=== PATIENT | female | born 1935 | race Caucasian/White ===

== ENCOUNTER 2021-04-29 07:12 | Inpatient (IN) | payer OTHER ==
[2021-04-29] MEDS ORDERED: SODIUM CHLORIDE 500 ML IV STA (08:23)
[2021-04-29 10:59] LABS: BASO % 0.2 % (0-2.0); HEMATOCRIT 39.1 % (32.4-45.2); HEMOGLOBIN 12.8 GM/dL (10.7-15.3); LYMPH % 18.4 % (8-40); MCH 28.7 pg (25.7-33.7); MCHC 32.8 g/dl (32.0-36.0); MEAN CELL VOLUME 87.5 fl (80-96); MEAN PLT VOLUME 9.8 fl (7.5-11.1); MONO % 10.9 % (3.8-10.2); NEUT % 70.5 % (42.8-82.8); PLATELET COUNT 170 10^3/uL (134-434); RBC 4.47 M/mm3 (3.60-5.2); RDW 13.4 % (11.6-15.6); WHITE BLOOD COUNT 3.8 K/mm3 (4.0-10.0)
[2021-04-29 11:09] LABS: CHLORIDE 107 mmol/L (98-107); SODIUM 140 mmol/L (136-145)
[2021-04-29 11:13] LABS: ALBUMIN 3.2 g/dl (3.4-5.0); ANION GAP 6 MMOL/L (8-16); BLOOD UREA NITROGEN 12.6 mg/dL (7-18); CALCIUM 8.5 mg/dL (8.5-10.1); CO2 27 mmol/L (21-32); GLUCOSE,RANDOM 107 mg/dL (74-106); MAGNESIUM 1.9 mg/dL (1.8-2.4)
[2021-04-29 11:16] LABS: CREATININE 0.8 mg/dL (0.55-1.3); PHOSPHOROUS 3.6 mg/dL (2.5-4.9); SGOT/AST 19 U/L (15-37); SGPT/ALT 17 U/L (13-61)
[2021-04-29 11:17] LABS: TOT PROT 6.9 g/dl (6.4-8.2)
[2021-04-29 11:18] LABS: ALK PHOS 77 U/L (45-117); BILIRUBIN,TOTAL 0.2 mg/dL (0.2-1)
[2021-04-29] MEDS ORDERED: ALBUTEROL SO4 HFA INHALER IH PRN (12:23)
[2021-04-29] MEDS ORDERED: PT OWN MED DRAWER 7, Y5N ONE (22:30)
[2021-04-29] MEDS ORDERED: METOPROLOL TARTRATE 25 MG TABLET (FP) ONE (22:49)
[2021-04-29] MEDS: ROSUVASTATIN CA 20 MG TABLET PO SCH (23:02)
[2021-04-29] MEDS: METOPROLOL TARTRATE 25 MG TABLET (FP) PO SCH (23:02)
[2021-04-29] MEDS: BUDESONIDE/FORMETEROL FUMARATE 160/4.5 mcg INHALER IH SCH (23:02)
[2021-04-30 01:46] VITALS: BMI 26.2
[2021-04-30] MEDS ORDERED: LEVOTHYROXINE NA 75 MCG TABLET (FP) PO ONE (07:45)
[2021-04-30] MEDS: DEXAMETHASONE SOD PHOSPHATE 4 MG/1 ML VIAL IVPUSH SCH (09:33)
[2021-04-30] MEDS: METOPROLOL TARTRATE 25 MG TABLET (FP) PO SCH ×2 (09:33→21:40)
[2021-04-30] MEDS: ASPIRIN 81 MG CHEWABLE TABLETS PO SCH (09:33)
[2021-04-30] MEDS: BUDESONIDE/FORMETEROL FUMARATE 160/4.5 mcg INHALER IH SCH ×2 (09:34→23:21)
[2021-04-30] MEDS: ENOXAPARIN NA (PORCINE) 40 MG/0.4 ML DISP.SYRIN SQ SCH (09:34)
[2021-04-30] MEDS ORDERED: REMDESIVIR 200 MG in SODIUM CHLORIDE 250 ML IVPB ONE (12:00)
[2021-04-30 17:39] LABS: BASO % 0.2 % (0-2.0); HEMATOCRIT 39.9 % (32.4-45.2); HEMOGLOBIN 13.1 GM/dL (10.7-15.3); LYMPH % 30.7 % (8-40); MCH 28.6 pg (25.7-33.7); MCHC 32.9 g/dl (32.0-36.0); MEAN CELL VOLUME 86.9 fl (80-96); MEAN PLT VOLUME 9.8 fl (7.5-11.1); MONO % 6.9 % (3.8-10.2); NEUT % 62.2 % (42.8-82.8); PLATELET COUNT 187 10^3/uL (134-434); RBC 4.59 M/mm3 (3.60-5.2); RDW 13.1 % (11.6-15.6); WHITE BLOOD COUNT 2.6 K/mm3 (4.0-10.0)
[2021-04-30 18:33] LABS: CALCIUM 8.3 mg/dL (8.5-10.1)
[2021-04-30 18:34] LABS: ALBUMIN 2.8 g/dl (3.4-5.0); BLOOD UREA NITROGEN 12.9 mg/dL (7-18); MAGNESIUM 1.6 mg/dL (1.8-2.4)
[2021-04-30 18:38] LABS: BILIRUBIN,TOTAL 0.3 mg/dL (0.2-1)
[2021-04-30 18:39] LABS: TOT PROT 7.1 g/dl (6.4-8.2)
[2021-04-30] MEDS: ROSUVASTATIN CA 20 MG TABLET PO SCH (21:40)
[2021-05-01] MEDS: MELATONIN 5 MG TABLETS PO PRN ×2 (02:21→21:30)
[2021-05-01] MEDS: LEVOTHYROXINE NA 75 MCG TABLET (FP) PO SCH (06:05)
[2021-05-01 10:04] LABS: BASO % 0.2 % (0-2.0); HEMATOCRIT 38.5 % (32.4-45.2); HEMOGLOBIN 13.1 GM/dL (10.7-15.3); LYMPH % 30.3 % (8-40); MCH 29.3 pg (25.7-33.7); MCHC 34.2 g/dl (32.0-36.0); MEAN CELL VOLUME 85.9 fl (80-96); MEAN PLT VOLUME 9.2 fl (7.5-11.1); MONO % 11.1 % (3.8-10.2); NEUT % 58.4 % (42.8-82.8); PLATELET COUNT 193 10^3/uL (134-434); RBC 4.48 M/mm3 (3.60-5.2); RDW 13.2 % (11.6-15.6); WHITE BLOOD COUNT 5.1 K/mm3 (4.0-10.0)
[2021-05-01 10:35] LABS: CALCIUM 9.2 mg/dL (8.5-10.1)
[2021-05-01 10:36] LABS: ALBUMIN 2.9 g/dl (3.4-5.0); BLOOD UREA NITROGEN 21.9 mg/dL (7-18); MAGNESIUM 1.9 mg/dL (1.8-2.4)
[2021-05-01 10:38] LABS: CREATININE 0.9 mg/dL (0.55-1.3)
[2021-05-01] MEDS: ASPIRIN 81 MG CHEWABLE TABLETS PO SCH (10:39)
[2021-05-01] MEDS: ENOXAPARIN NA (PORCINE) 40 MG/0.4 ML DISP.SYRIN SQ SCH (10:39)
[2021-05-01] MEDS: METOPROLOL TARTRATE 25 MG TABLET (FP) PO SCH ×2 (10:39→21:30)
[2021-05-01 10:40] LABS: BILIRUBIN,TOTAL 0.2 mg/dL (0.2-1)
[2021-05-01] MEDS: DEXAMETHASONE SOD PHOSPHATE 4 MG/1 ML VIAL IVPUSH SCH (10:40)
[2021-05-01] MEDS: BUDESONIDE/FORMETEROL FUMARATE 160/4.5 mcg INHALER IH SCH ×2 (10:40→22:46)
[2021-05-01] MEDS: REMDESIVIR 100 MG in SODIUM CHLORIDE 250 ML IVPB SCH (13:07)
[2021-05-01] MEDS: ROSUVASTATIN CA 20 MG TABLET PO SCH (21:30)
[2021-05-02] MEDS: LEVOTHYROXINE NA 75 MCG TABLET (FP) PO SCH (06:33)
[2021-05-02] MEDS: ASPIRIN 81 MG CHEWABLE TABLETS PO SCH (09:42)
[2021-05-02] MEDS: BUDESONIDE/FORMETEROL FUMARATE 160/4.5 mcg INHALER IH SCH ×2 (09:42→21:14)
[2021-05-02] MEDS: DEXAMETHASONE SOD PHOSPHATE 4 MG/1 ML VIAL IVPUSH SCH (09:42)
[2021-05-02] MEDS: METOPROLOL TARTRATE 25 MG TABLET (FP) PO SCH ×2 (09:42→21:13)
[2021-05-02] MEDS: ENOXAPARIN NA (PORCINE) 40 MG/0.4 ML DISP.SYRIN SQ SCH (09:43)
[2021-05-02 10:06] LABS: BASO % 0.1 % (0-2.0); HEMATOCRIT 38.4 % (32.4-45.2); HEMOGLOBIN 12.6 GM/dL (10.7-15.3); LYMPH % 27.9 % (8-40); MCH 28.3 pg (25.7-33.7); MCHC 32.8 g/dl (32.0-36.0); MEAN CELL VOLUME 86.3 fl (80-96); MEAN PLT VOLUME 9.5 fl (7.5-11.1); PLATELET COUNT 224 10^3/uL (134-434); RBC 4.45 M/mm3 (3.60-5.2); RDW 13.1 % (11.6-15.6); WHITE BLOOD COUNT 3.9 K/mm3 (4.0-10.0)
[2021-05-02 10:28] LABS: CALCIUM 8.6 mg/dL (8.5-10.1)
[2021-05-02 10:29] LABS: ALBUMIN 2.9 g/dl (3.4-5.0); BLOOD UREA NITROGEN 28.7 mg/dL (7-18); MAGNESIUM 1.9 mg/dL (1.8-2.4)
[2021-05-02 10:32] LABS: CREATININE 0.8 mg/dL (0.55-1.3)
[2021-05-02 10:33] LABS: BILIRUBIN,TOTAL 0.2 mg/dL (0.2-1); TOT PROT 6.7 g/dl (6.4-8.2)
[2021-05-02] MEDS: REMDESIVIR 100 MG in SODIUM CHLORIDE 250 ML IVPB SCH (11:59)
[2021-05-02 12:20] LABS: ANISOCYTOSIS 2+; MACROCYTOSIS 0; OVALOCYTE 2+; PLATELET ESTIMATE NORMAL
[2021-05-02] MEDS: MELATONIN 5 MG TABLETS PO PRN (21:13)
[2021-05-02] MEDS: ACETAMINOPHEN 325 MG TABLET (FP) PO PRN (21:13)
[2021-05-02] MEDS: ROSUVASTATIN CA 20 MG TABLET PO SCH (21:14)
[2021-05-03] MEDS: LEVOTHYROXINE NA 75 MCG TABLET (FP) PO SCH (06:22)
[2021-05-03 09:39] LABS: HEMATOCRIT 36.9 % (32.4-45.2); HEMOGLOBIN 12.2 GM/dL (10.7-15.3); MCH 28.6 pg (25.7-33.7); MCHC 33.2 g/dl (32.0-36.0); MEAN CELL VOLUME 86.2 fl (80-96); MEAN PLT VOLUME 9.7 fl (7.5-11.1); PLATELET COUNT 246 10^3/uL (134-434); RBC 4.28 M/mm3 (3.60-5.2); RDW 13.3 % (11.6-15.6); WHITE BLOOD COUNT 4.2 K/mm3 (4.0-10.0)
[2021-05-03 09:59] LABS: ALBUMIN 2.8 g/dl (3.4-5.0); CALCIUM 8.4 mg/dL (8.5-10.1)
[2021-05-03 10:00] LABS: MAGNESIUM 1.9 mg/dL (1.8-2.4)
[2021-05-03 10:01] LABS: CREATININE 0.7 mg/dL (0.55-1.3)
[2021-05-03 10:02] LABS: BILIRUBIN,TOTAL 0.4 mg/dL (0.2-1); TOT PROT 6.4 g/dl (6.4-8.2)
[2021-05-03] MEDS ORDERED: PT OWN MED DRAWER 7, Y5N ONE (10:13)
[2021-05-03 10:25] LABS: ANISOCYTOSIS 1+; MACROCYTOSIS 0; PLATELET ESTIMATE NORMAL
[2021-05-03] MEDS: ASPIRIN 81 MG CHEWABLE TABLETS PO SCH (10:43)
[2021-05-03] MEDS: BUDESONIDE/FORMETEROL FUMARATE 160/4.5 mcg INHALER IH SCH ×2 (10:43→21:36)
[2021-05-03] MEDS: METOPROLOL TARTRATE 25 MG TABLET (FP) PO SCH ×2 (10:43→21:35)
[2021-05-03] MEDS: DEXAMETHASONE SOD PHOSPHATE 4 MG/1 ML VIAL IVPUSH SCH (10:44)
[2021-05-03] MEDS: ENOXAPARIN NA (PORCINE) 40 MG/0.4 ML DISP.SYRIN SQ SCH (10:46)
[2021-05-03] MEDS: REMDESIVIR 100 MG in SODIUM CHLORIDE 250 ML IVPB SCH (12:21)
[2021-05-03] MEDS: MELATONIN 5 MG TABLETS PO PRN (21:35)
[2021-05-03] MEDS: ROSUVASTATIN CA 20 MG TABLET PO SCH (21:35)
[2021-05-03] MEDS: ACETAMINOPHEN 325 MG TABLET (FP) PO PRN (21:35)
[2021-05-03] MEDS: guaiFENesin 200 MG/10 ML 10 ML UNIT-DOSE CUPS PO PRN (21:36)
[2021-05-04] MEDS: LEVOTHYROXINE NA 75 MCG TABLET (FP) PO SCH (06:04)
[2021-05-04] MEDS ORDERED: PT OWN MED DRAWER 7, Y5N ONE (09:22)
[2021-05-04] MEDS: DEXAMETHASONE SOD PHOSPHATE 4 MG/1 ML VIAL IVPUSH SCH (09:26)
[2021-05-04] MEDS: ENOXAPARIN NA (PORCINE) 40 MG/0.4 ML DISP.SYRIN SQ SCH (09:27)
[2021-05-04] MEDS: ASPIRIN 81 MG CHEWABLE TABLETS PO SCH (09:27)
[2021-05-04] MEDS: METOPROLOL TARTRATE 25 MG TABLET (FP) PO SCH (09:27)
[2021-05-04] MEDS: guaiFENesin 200 MG/10 ML 10 ML UNIT-DOSE CUPS PO PRN (09:28)
[2021-05-04] MEDS: BUDESONIDE/FORMETEROL FUMARATE 160/4.5 mcg INHALER IH SCH (09:28)
[2021-05-04] MEDS: REMDESIVIR 100 MG in SODIUM CHLORIDE 250 ML IVPB SCH (12:39)
[2021-05-04] MEDS ORDERED: METOPROLOL TARTRATE 25 MG TABLET (FP) PO SCH (14:32)
[2021-05-04 15:28] VITALS: BP 135/68; PULSE 61; TEMP 98.8
== END 2021-05-04 17:00 | disposition home or self-care (01) | DRG 179 ==
LOC: JER 07:12 → JERBED 11:57 → J8W 23:42
PROVIDERS: ADMIT Internal Medicine; ATTEND Nurse Practitioner Family
PROC: XW033E5 Introduction of Remdesivir Anti-infective into Peripheral Vein, Percutaneous Approach, New Technology Group 5 (ICD-10-PCS; principal; 2021-04-30)
DX: U07.1 COVID-19 (principal); I10 Essential (primary) hypertension; E78.5 Hyperlipidemia, unspecified; E03.9 Hypothyroidism, unspecified; R09.02 Hypoxemia; J06.9 Acute upper respiratory infection, unspecified; E66.9 Obesity, unspecified; Z68.26 Body mass index [BMI] 26.0-26.9, adult
CPT/HCPCS: 36415; 71045-TC-FY; 80053; 81003; 82550; 82728; 83615; 83690; 83735; 84100; 84484; 85025; 85379; 86140; 87086; 87804; 93005; 93010; 94010; 94761; 97116-GP; 97161-GP; 99285-25; C9399; C9803-CS; U0003; U0005

== ENCOUNTER 2021-05-04 20:01 | Observation (INO) | payer OTHER ==
[2021-05-04 22:51] LABS: BASO % 1.8 % (0-2.0); EOS % 0.2 % (0-4.5); HEMATOCRIT 41.2 % (32.4-45.2); HEMOGLOBIN 13.8 GM/dL (10.7-15.3); LYMPH % 17.1 % (8-40); MCHC 33.6 g/dl (32.0-36.0); MEAN CELL VOLUME 86.4 fl (80-96); MEAN PLT VOLUME 9.1 fl (7.5-11.1); MONO % 11.3 % (3.8-10.2); NEUT % 69.6 % (42.8-82.8); PLATELET COUNT 260 10^3/uL (134-434); RBC 4.76 M/mm3 (3.60-5.2); RDW 13.5 % (11.6-15.6); WHITE BLOOD COUNT 4.3 K/mm3 (4.0-10.0)
[2021-05-04 23:10] LABS: CHLORIDE 106 mmol/L (98-107); SODIUM 138 mmol/L (136-145)
[2021-05-04 23:12] LABS: ALBUMIN 3.2 g/dl (3.4-5.0); ANION GAP 10 MMOL/L (8-16); BLOOD UREA NITROGEN 27.8 mg/dL (7-18); CALCIUM 8.7 mg/dL (8.5-10.1); CO2 23 mmol/L (21-32); GLUCOSE,RANDOM 137 mg/dL (74-106)
[2021-05-04 23:15] LABS: CREATININE 0.8 mg/dL (0.55-1.3); SGPT/ALT 25 U/L (13-61)
[2021-05-04 23:16] LABS: SGOT/AST 28 U/L (15-37)
[2021-05-04 23:17] LABS: BILIRUBIN,TOTAL 0.4 mg/dL (0.2-1); TOT PROT 7.3 g/dl (6.4-8.2)
[2021-05-04 23:18] LABS: ALK PHOS 79 U/L (45-117)
[2021-05-05] MEDS ORDERED: ALBUTEROL SO4 HFA INHALER IH PRN (14:22)
[2021-05-05] MEDS: HEPARIN NA (PORCINE) 5,000 UNITS/ML 1ML VIAL SQ SCH ×2 (21:23→22:09)
[2021-05-05] MEDS: DEXAMETHASONE SOD PHOSPHATE 10 MG/1 ML VIAL IVPUSH SCH (21:23)
[2021-05-05] MEDS ORDERED: ROSUVASTATIN CA 20 MG TABLET PO SCH (22:00)
[2021-05-05] MEDS: ASCORBIC ACID 500 MG TABLET (FP) PO SCH (22:09)
[2021-05-05] MEDS: ZINC SULFATE 220 MG CAPSULE (FP) PO SCH (22:09)
[2021-05-05] MEDS: METOPROLOL TARTRATE 25 MG TABLET (FP) PO SCH (22:09)
[2021-05-06] MEDS ORDERED: LEVOTHYROXINE NA 25 MCG TABLET (FP) ONE (06:11)
[2021-05-06] MEDS ORDERED: HEPARIN NA (PORCINE) 5,000 UNITS/ML 1ML VIAL ONE (06:12)
[2021-05-06] MEDS: HEPARIN NA (PORCINE) 5,000 UNITS/ML 1ML VIAL SQ SCH ×2 (06:26→13:01)
[2021-05-06] MEDS ORDERED: LEVOTHYROXINE NA 75 MCG TABLET (FP) PO SCH (07:00)
[2021-05-06] MEDS: ASCORBIC ACID 500 MG TABLET (FP) PO SCH (09:37)
[2021-05-06] MEDS: ZINC SULFATE 220 MG CAPSULE (FP) PO SCH (09:38)
[2021-05-06] MEDS: METOPROLOL TARTRATE 25 MG TABLET (FP) PO SCH (09:38)
[2021-05-06] MEDS: DEXAMETHASONE SOD PHOSPHATE 10 MG/1 ML VIAL IVPUSH SCH (09:38)
[2021-05-06 12:01] VITALS: BMI 25.7
[2021-05-06 15:06] VITALS: BP 123/59; PULSE 73; TEMP 98.4
== END 2021-05-06 15:00 ==
LOC: JER 20:01 → JERBED 05-05 10:23 → UNDOADMOB 05-05 10:23 → INTOOBSV 05-05 10:23 → JERBED 05-05 15:19 → J5S 05-06 08:40
PROVIDERS: ADMIT Family Medicine; ATTEND Nurse Practitioner Family
PROC: 3E023GC Introduction of Other Therapeutic Substance into Muscle, Percutaneous Approach (ICD-10-PCS; principal; 2021-05-05)
PROC: 3E033GC Introduction of Other Therapeutic Substance into Peripheral Vein, Percutaneous Approach (ICD-10-PCS; 2021-05-05)
DX: U07.1 COVID-19 (principal); E03.9 Hypothyroidism, unspecified; I10 Essential (primary) hypertension; E78.5 Hyperlipidemia, unspecified; R63.39 Other feeding difficulties; R53.1 Weakness; Z29.9 Encounter for prophylactic measures, unspecified
CPT/HCPCS: 36415; 71045-TC-FY; 80053; 82550; 82728; 84484; 85025; 85730; 86140; 93005; 93010; 96372; 96374; 99285-25; C9803-CS; G0378; J1100; J1644; U0003; U0005